=== PATIENT | female | born 1955 | race Caucasian/White ===

== ENCOUNTER → 2016-09-03 | Outpatient (CLI) | payer OTHER ==
[2016-09-03 10:14] LABS: BASOPHIL % 0.5 % (0-2); PLATELET COUNT 448 x10^3mcL (130-400); RED CELL DISTRIBUTION WIDTH 14.6 % (11.5-14.5)
[2016-09-03 10:20] LABS: ALBUMIN 3.6 g/dL (3.4-5.0); ALKALINE PHOSPHATASE 56 U/L (46-116); ALT/SGPT 26 U/L (14-59); AST/SGOT 12 U/L (15-37); BILIRUBIN TOTAL 0.2 mg/dL (0.20-1.00); CALCIUM 9.2 mg/dL (8.5-10.1); CARBON DIOXIDE 26.5 mmol/L (21-32); CHLORIDE SERUM 105 mmol/L (98-107); CHOLESTEROL 203 mg/dL (<200); CHOLESTEROL/HDL RATIO 4.1; CREATININE SERUM 0.6 mg/dL (0.6-1.0); GFR1 > 60 mL/min; GLUCOSE SERUM 126 mg/dL (74-106); HDL CHOLESTEROL 49 mg/dL (40-60); POTASSIUM SERUM 4.2 mmol/L (3.5-5.1); SODIUM SERUM 137 mmol/L (136-145); TOTAL PROTEIN, SERUM 7.4 g/dL (6.4-8.2); TRIGLYCERIDES 163 mg/dL (<150)
[2016-09-04 16:38] LABS: microalbumin:creatinine ratio < 3.8 (0.0-30.0)
== END | disposition home or self-care (01) ==
LOC: LB 09:10
PROVIDERS: Family Medicine
DX: E11.9 Type 2 diabetes mellitus without complications (principal)

== ENCOUNTER 2017-02-15 02:33 | Emergency (ER) | payer OTHER ==
[~2017-02-15] VITALS: Ht 160 cm; Wt 65.8 kg
[2017-02-15 02:34] VITALS: Ht 160 cm; Wt 65.8 kg
[2017-02-15 05:50] VITALS: BP 120/75
== END 2017-02-15 05:50 | disposition home or self-care (01) ==
LOC: ED 02:33
DX: J45.909 Unspecified asthma, uncomplicated (principal); J06.9 Acute upper respiratory infection, unspecified; E11.9 Type 2 diabetes mellitus without complications; I10 Essential (primary) hypertension; E78.00 Pure hypercholesterolemia, unspecified; Z88.5 Allergy status to narcotic agent
CPT/HCPCS: J7620

== ENCOUNTER → 2017-02-23 | Outpatient (CLI) | payer OTHER ==
[2017-02-23 09:52] LABS: ALBUMIN 3.7 g/dL (3.4-5.0); ALKALINE PHOSPHATASE 65 U/L (46-116); ALT/SGPT 37 U/L (14-59); AST/SGOT 14 U/L (15-37); BILIRUBIN TOTAL 0.38 mg/dL (0.20-1.00); CALCIUM 9.6 mg/dL (8.5-10.1); CARBON DIOXIDE 29.1 mmol/L (21-32); CHLORIDE SERUM 103 mmol/L (98-107); CHOLESTEROL 172 mg/dL (<200); CHOLESTEROL/HDL RATIO 4.4; CREATININE SERUM 0.6 mg/dL (0.6-1.0); GFR1 > 60 mL/min; GLUCOSE SERUM 143 mg/dL (74-106); HDL CHOLESTEROL 39 mg/dL (40-60); POTASSIUM SERUM 4.2 mmol/L (3.5-5.1); SODIUM SERUM 138 mmol/L (136-145); TOTAL PROTEIN, SERUM 7.6 g/dL (6.4-8.2)
[2017-02-23 09:53] LABS: TRIGLYCERIDES 242 mg/dL (<150)
[2017-02-23 10:01] LABS: BASOPHIL % 0.5 % (0-2); RED BLOOD CELLS 5.33 M/mm3 (4.10-5.10); RED CELL DISTRIBUTION WIDTH 14.1 % (11.5-14.5)
[2017-02-23 10:02] LABS: FREE T4 1.36 ng/dL (0.76-1.46); FREE THYROXINE INDEX 4.1 ug/dL (1.4-4.5); PLATELET COUNT 445 x10^3mcL (130-400); T4(THYROXINE) 11.8 ug/dL (4.7-13.3)
[2017-02-23 10:28] LABS: IRON 63 ug/dL (50-170); TOTAL IRON BINDING CAPACITY 333 ug/dL (250-450)
[2017-02-23 10:39] LABS: T3 TOTAL 1.22 ng/mL
== END | disposition home or self-care (01) ==
LOC: LB 09:06
PROVIDERS: Family Medicine
DX: Z00.00 Encounter for general adult medical examination without abnormal findings (principal)
CPT/HCPCS: 84439

== ENCOUNTER → 2017-03-10 | Outpatient (CLI) | payer OTHER | END | disposition home or self-care (01) | LOC: LB 08:19 | DX: E11.9 Type 2 diabetes mellitus without complications (principal); I10 Essential (primary) hypertension ==

== ENCOUNTER → 2017-08-05 | Outpatient (CLI) | payer OTHER ==
[2017-08-05 10:41] LABS: ALBUMIN 3.9 g/dL (3.4-5.0); ALKALINE PHOSPHATASE 54 U/L (46-116); ALT/SGPT 20 U/L (14-59); AST/SGOT 14 U/L (15-37); BILIRUBIN TOTAL 0.36 mg/dL (0.20-1.00); CALCIUM 9.9 mg/dL (8.5-10.1); CARBON DIOXIDE 27.9 mmol/L (21-32); CHLORIDE SERUM 104 mmol/L (98-107); CREATININE SERUM 0.6 mg/dL (0.6-1.0); GLUCOSE SERUM 133 mg/dL (74-106); HDL CHOLESTEROL 50 mg/dL (40-60); POTASSIUM SERUM 4.4 mmol/L (3.5-5.1); SODIUM SERUM 140 mmol/L (136-145); TOTAL PROTEIN, SERUM 7.7 g/dL (6.4-8.2)
[2017-08-05 10:52] LABS: FREE T4 1.03 ng/dL (0.76-1.46); FREE THYROXINE INDEX 2.9 ug/dL (1.4-4.5); T4(THYROXINE) 9.2 ug/dL (4.7-13.3)
[2017-08-05 12:30] LABS: T3 TOTAL 1.27 ng/mL
[2017-08-05 13:04] LABS: PLATELET COUNT 368 x10^3mcL (130-400)
[2017-08-05 14:13] LABS: CHOLESTEROL 143 mg/dL (<200); CHOLESTEROL/HDL RATIO 2.9; TRIGLYCERIDES 125 mg/dL (<150)
== END | disposition home or self-care (01) ==
LOC: LB 09:43
PROVIDERS: Family Medicine
DX: E11.9 Type 2 diabetes mellitus without complications (principal); I10 Essential (primary) hypertension
CPT/HCPCS: 84439

== ENCOUNTER 2017-08-14 11:02 | Inpatient (IN) | payer OTHER ==
[~2017-08-14] VITALS: Ht 152.4 cm; Wt 63.1 kg
[2017-08-14 11:11] VITALS: Ht 152.4 cm; Wt 63.1 kg
[2017-08-14 13:07] LABS: BASOPHIL % 0.3 % (0-2); PLATELET COUNT 396 x10^3mcL (130-400)
[2017-08-14 13:10] LABS: UA SPECIFIC GRAVITY <=1.005 (1.005-1.035); microscopic required? YES; urine erythrocyte NEGATIVE (NEGATIVE)
[2017-08-14 13:32] LABS: RED CELL DISTRIBUTION WIDTH 14.7 % (11.5-14.5)
[2017-08-14 13:40] LABS: CALCIUM 10.4 mg/dL (8.5-10.1); CARBON DIOXIDE 25.6 mmol/L (21-32); CHLORIDE SERUM 103 mmol/L (98-107); CREATININE SERUM 0.7 mg/dL (0.6-1.0); GFR1 > 60 mL/min; GLUCOSE SERUM 173 mg/dL (74-106); POTASSIUM SERUM 4.4 mmol/L (3.5-5.1); SODIUM SERUM 139 mmol/L (136-145)
[2017-08-14 13:51] LABS: ALBUMIN 3.9 g/dL (3.4-5.0); ALKALINE PHOSPHATASE 57 U/L (46-116); ALT/SGPT 29 U/L (14-59); AMYLASE 48 U/L (25-115); AST/SGOT 18 U/L (15-37); CHOLESTEROL 147 mg/dL (<200); HDL CHOLESTEROL 48 mg/dL (40-60); LIPASE 175 IU/L (73-393); MAGNESIUM 2.3 mg/dL (1.8-2.4); TOTAL PROTEIN, SERUM 7.9 g/dL (6.4-8.2)
[2017-08-14 14:33] LABS: AMPHETAMINE QUAL UR NONE DETECTED (See below)
[2017-08-14] MEDS ORDERED: METFORMIN HCL850 MG PO (16:50)
[2017-08-14] MEDS ORDERED: GLYBURIDE2.5 MG PO (16:56)
[2017-08-14] MEDS ORDERED: PROPRANOLOL HY120 MG PO (16:57)
[2017-08-14] MEDS ORDERED: LISINOPRIL40 MG PO (16:58)
[2017-08-14] MEDS ORDERED: SIMVASTATIN80 M1 PO (16:59)
[2017-08-14] MEDS ORDERED: GOOD SENSE ASPI81 M3 PO (17:00)
[2017-08-14] MEDS ORDERED: MOTION SICKNESS25 M4 PO (17:01)
[2017-08-14] MEDS ORDERED: LORAZEPAM0.5 MG PO (17:02)
[2017-08-14 17:39] VITALS: BP 119/65
[2017-08-14 21:04] VITALS: BP 146/60
[2017-08-15 05:59] VITALS: BP 142/86
[2017-08-15 06:13] LABS: BASOPHIL % 0.2 % (0-2); PLATELET COUNT 362 x10^3mcL (130-400)
[2017-08-15 06:35] LABS: CALCIUM 9.8 mg/dL (8.5-10.1); CARBON DIOXIDE 25.4 mmol/L (21-32); CHLORIDE SERUM 105 mmol/L (98-107); CHOLESTEROL 140 mg/dL (<200); CHOLESTEROL/HDL RATIO 3.1; CREATININE SERUM 0.6 mg/dL (0.6-1.0); GFR1 > 60 mL/min; GLUCOSE SERUM 133 mg/dL (74-106); HDL CHOLESTEROL 45 mg/dL (40-60); MAGNESIUM 2.1 mg/dL (1.8-2.4); PHOSPHOROUS 3.5 mg/dL (2.5-4.9); POTASSIUM SERUM 4.3 mmol/L (3.5-5.1); SODIUM SERUM 139 mmol/L (136-145); TRIGLYCERIDES 115 mg/dL (<150)
[2017-08-15 06:43] LABS: RED CELL DISTRIBUTION WIDTH 14.6 % (11.5-14.5)
[2017-08-15 13:42] VITALS: BP 135/48
[2017-08-15 16:22] VITALS: BP 104/40
[2017-08-15] MEDS ORDERED: LEVAQUIN750 MG PO (16:30)
[2017-08-15 16:49] VITALS: BP 104/40
== END 2017-08-15 19:30 | disposition home or self-care (01) | DRG 206 ==
LOC: ED 11:02 → DU 15:44
PROVIDERS: Emergency Medicine; Internal Medicine
DX: M94.0 Chondrocostal junction syndrome [Tietze] (principal); N39.0 Urinary tract infection, site not specified; R00.0 Tachycardia, unspecified; E11.65 Type 2 diabetes mellitus with hyperglycemia; E78.5 Hyperlipidemia, unspecified; I11.9 Hypertensive heart disease without heart failure; F41.9 Anxiety disorder, unspecified; E78.00 Pure hypercholesterolemia, unspecified; I45.10 Unspecified right bundle-branch block; Z79.82 Long term (current) use of aspirin; Z79.84 Long term (current) use of oral hypoglycemic drugs
CPT/HCPCS: 83880; 85378; A9500; G0480; J7030

== ENCOUNTER → 2017-11-16 | Outpatient (CLI) | payer OTHER ==
[~2017-11-16] MED LIST: GLYBURIDE2.5 MG PO; GOOD SENSE ASPI81 M3 PO; LEVAQUIN750 MG PO; LISINOPRIL40 MG PO; LORAZEPAM0.5 MG PO; METFORMIN HCL850 MG PO; MOTION SICKNESS25 M4 PO; PROPRANOLOL HY120 MG PO; SIMVASTATIN80 M1 PO
[2017-11-16 09:24] LABS: BASOPHIL % 0.4 % (0-2); PLATELET COUNT 398 x10^3mcL (130-400); RED CELL DISTRIBUTION WIDTH 13.3 % (11.5-14.5)
[2017-11-16 09:48] LABS: ALBUMIN 3.9 g/dL (3.4-5.0); ALKALINE PHOSPHATASE 57 U/L (46-116); ALT/SGPT 34 U/L (14-59); AST/SGOT 14 U/L (15-37); BILIRUBIN TOTAL 0.4 mg/dL (0.20-1.00); CARBON DIOXIDE 29.2 mmol/L (21-32); CHLORIDE SERUM 102 mmol/L (98-107); CHOLESTEROL 173 mg/dL (<200); CREATININE SERUM 0.7 mg/dL (0.6-1.0); FREE T4 1.11 ng/dL (0.76-1.46); GFR1 > 60 mL/min; GLUCOSE SERUM 131 mg/dL (74-106); HDL CHOLESTEROL 43 mg/dL (40-60); POTASSIUM SERUM 4.6 mmol/L (3.5-5.1); SODIUM SERUM 137 mmol/L (136-145); TRIGLYCERIDES 146 mg/dL (<150)
[2017-11-16 11:14] LABS: UA SPECIFIC GRAVITY 1.015 (1.005-1.035); microscopic required? YES; urine erythrocyte NEGATIVE (NEGATIVE)
== END | disposition home or self-care (01) ==
LOC: LB 09:04
DX: E11.9 Type 2 diabetes mellitus without complications (principal); E78.5 Hyperlipidemia, unspecified
CPT/HCPCS: 84439

== ENCOUNTER → 2017-11-20 | Outpatient (CLI) | payer OTHER | END | disposition home or self-care (01) | LOC: RD 11:11 → LB 11:11 | DX: R10.9 Unspecified abdominal pain (principal) ==

== ENCOUNTER 2017-12-06 07:56 | Day surgery (SDC) | payer OTHER ==
[~2017-12-06] VITALS: Ht 149.9 cm; Wt 60.8 kg
[2017-12-06 08:51] VITALS: BP 164/77
[2017-12-06 12:04] VITALS: BP 112/60
== END 2017-12-06 11:15 | disposition home or self-care (01) ==
LOC: GI 07:56 → OR 10:30 → GI 11:15
PROVIDERS: Internal Medicine Gastroenterology
PROC: 0DB68ZX Excision of Stomach, Via Natural or Artificial Opening Endoscopic, Diagnostic (ICD-10-PCS; principal; 2017-12-06 10:30)
DX: K21.9 Gastro-esophageal reflux disease without esophagitis (principal); K59.00 Constipation, unspecified; K64.9 Unspecified hemorrhoids; I10 Essential (primary) hypertension; E11.9 Type 2 diabetes mellitus without complications; E78.5 Hyperlipidemia, unspecified; Z68.27 Body mass index [BMI] 27.0-27.9, adult; Z80.0 Family history of malignant neoplasm of digestive organs
CPT/HCPCS: 43235; J1200; J1610; J2250; J2310; J3010; J3490

== ENCOUNTER → 2018-04-19 | Outpatient (CLI) | payer OTHER ==
[2018-04-19 09:43] LABS: BASOPHIL % 0.5 % (0-2); PLATELET COUNT 368 x10^3mcL (130-400); RED CELL DISTRIBUTION WIDTH 14.4 % (11.5-14.5); microscopic required? YES; urine erythrocyte NEGATIVE (NEGATIVE)
[2018-04-19 10:05] LABS: ALBUMIN 3.8 g/dL (3.4-5.0); ALKALINE PHOSPHATASE 52 U/L (46-116); ALT/SGPT 38 U/L (14-59); AST/SGOT 17 U/L (15-37); BILIRUBIN TOTAL 0.39 mg/dL (0.20-1.00); CALCIUM 9.6 mg/dL (8.5-10.1); CARBON DIOXIDE 30.7 mmol/L (21-32); CHLORIDE SERUM 105 mmol/L (98-107); CHOLESTEROL 145 mg/dL (<200); CHOLESTEROL/HDL RATIO 3.2; CREATININE SERUM 0.6 mg/dL (0.6-1.0); FREE T4 1.08 ng/dL (0.76-1.46); GFR1 > 60 mL/min; GLUCOSE SERUM 147 mg/dL (74-106); HDL CHOLESTEROL 45 mg/dL (40-60); POTASSIUM SERUM 4.7 mmol/L (3.5-5.1); SODIUM SERUM 143 mmol/L (136-145); TOTAL PROTEIN, SERUM 7.9 g/dL (6.4-8.2); TRIGLYCERIDES 113 mg/dL (<150)
== END | disposition home or self-care (01) ==
LOC: LB 08:43
DX: E11.9 Type 2 diabetes mellitus without complications (principal); E78.5 Hyperlipidemia, unspecified
CPT/HCPCS: 84439

== ENCOUNTER 2018-05-03 05:41 | Emergency (ER) | payer OTHER ==
[~2018-05-03] VITALS: Ht 152.4 cm; Wt 64.4 kg
[2018-05-03 05:49] VITALS: BP 147/78; Ht 152.4 cm; Wt 64.4 kg
== END 2018-05-03 08:15 | disposition home or self-care (01) ==
LOC: ED 05:41
DX: J02.9 Acute pharyngitis, unspecified (principal); I10 Essential (primary) hypertension; E11.9 Type 2 diabetes mellitus without complications; E78.00 Pure hypercholesterolemia, unspecified; Z88.5 Allergy status to narcotic agent

== ENCOUNTER → 2018-07-04 | Outpatient (CLI) | payer OTHER | END | disposition home or self-care (01) | LOC: US 08:37 | PROC: BU4CZZZ Ultrasonography of Uterus and Ovaries (ICD-10-PCS; principal; 2018-07-04) | DX: N95.0 Postmenopausal bleeding (principal) ==

== ENCOUNTER → 2018-08-04 | Outpatient (CLI) | payer OTHER ==
[2018-08-04 09:57] LABS: ALBUMIN 3.8 g/dL (3.4-5.0); ALKALINE PHOSPHATASE 51 U/L (46-116); ALT/SGPT 38 U/L (14-59); AST/SGOT 14 U/L (15-37); BILIRUBIN TOTAL 0.3 mg/dL (0.20-1.00); CALCIUM 9.8 mg/dL (8.5-10.1); CARBON DIOXIDE 29.3 mmol/L (21-32); CHLORIDE SERUM 103 mmol/L (98-107); CHOLESTEROL 182 mg/dL (<200); CHOLESTEROL/HDL RATIO 4.3; CREATININE SERUM 0.6 mg/dL (0.6-1.0); GFR1 > 60 mL/min; GLUCOSE SERUM 132 mg/dL (74-106); HDL CHOLESTEROL 42 mg/dL (40-60); POTASSIUM SERUM 4.3 mmol/L (3.5-5.1); SODIUM SERUM 140 mmol/L (136-145); TOTAL PROTEIN, SERUM 7.6 g/dL (6.4-8.2); TRIGLYCERIDES 203 mg/dL (<150)
[2018-08-04 10:39] LABS: BASOPHIL % 0.6 % (0-2); PLATELET COUNT 371 x10^3mcL (130-400); RED CELL DISTRIBUTION WIDTH 14.2 % (11.5-14.5)
[2018-08-05 09:05] LABS: microalbumin:creatinine ratio 7.6 (0.0-30.0)
== END | disposition home or self-care (01) ==
LOC: LB 09:10
DX: E11.9 Type 2 diabetes mellitus without complications (principal)

== ENCOUNTER 2018-08-19 22:33 | Emergency (ER) | payer OTHER ==
[2018-08-20 01:06] LABS: BASOPHIL % 0.3 % (0-2); PLATELET COUNT 374 x10^3mcL (130-400); RED CELL DISTRIBUTION WIDTH 14.4 % (11.5-14.5)
[2018-08-20 01:13] LABS: CALCIUM 10.2 mg/dL (8.5-10.1); CARBON DIOXIDE 25.1 mmol/L (21-32); CHLORIDE SERUM 102 mmol/L (98-107); CREATININE SERUM 0.7 mg/dL (0.6-1.0); GFR1 > 60 mL/min; GLUCOSE SERUM 181 mg/dL (74-106); POTASSIUM SERUM 4.2 mmol/L (3.5-5.1); SODIUM SERUM 137 mmol/L (136-145)
[2018-08-20 01:17] LABS: ALBUMIN 3.7 g/dL (3.4-5.0); ALKALINE PHOSPHATASE 55 U/L (46-116); ALT/SGPT 39 U/L (14-59); AST/SGOT 13 U/L (15-37); CHOLESTEROL 166 mg/dL (<200); TOTAL PROTEIN, SERUM 7.5 g/dL (6.4-8.2)
[2018-08-20 01:25] LABS: T3 TOTAL 1.1 ng/mL
[2018-08-20 01:27] LABS: FREE T4 0.95 ng/dL (0.76-1.46); FREE THYROXINE INDEX 2.8 ug/dL (1.4-4.5)
[2018-08-20 02:12] VITALS: BP 116/52
== END 2018-08-20 02:12 | disposition home or self-care (01) ==
LOC: ED 22:33
PROVIDERS: Specialist
DX: R00.2 Palpitations (principal); I10 Essential (primary) hypertension; E11.9 Type 2 diabetes mellitus without complications; E78.00 Pure hypercholesterolemia, unspecified; Z88.5 Allergy status to narcotic agent; Z98.890 Other specified postprocedural states
CPT/HCPCS: 36415; 82962; 84439; G0480; Q0092

== ENCOUNTER 2018-09-26 20:07 | Emergency (ER) | payer OTHER ==
[~2018-09-26] VITALS: Ht 152.4 cm; Wt 63.0 kg
[2018-09-26 20:13] VITALS: Ht 152.4 cm; Wt 63.0 kg
[2018-09-26 22:05] LABS: CARBON DIOXIDE 27.6 mmol/L (21-32); CHLORIDE SERUM 105 mmol/L (98-107); CREATININE SERUM 0.8 mg/dL (0.6-1.0); GFR1 > 60 mL/min; GLUCOSE SERUM 206 mg/dL (74-106); POTASSIUM SERUM 4.1 mmol/L (3.5-5.1); SODIUM SERUM 140 mmol/L (136-145)
[2018-09-26 22:30] VITALS: BP 159/70
== END 2018-09-26 22:30 | disposition home or self-care (01) ==
LOC: ED 20:07
PROVIDERS: Emergency Medicine
DX: R00.2 Palpitations (principal); I16.0 Hypertensive urgency; I10 Essential (primary) hypertension; E11.9 Type 2 diabetes mellitus without complications; E78.00 Pure hypercholesterolemia, unspecified; Z98.890 Other specified postprocedural states; Z88.5 Allergy status to narcotic agent
CPT/HCPCS: 36415

== ENCOUNTER → 2018-10-18 | Outpatient (CLI) | payer OTHER ==
[2018-10-18 08:54] LABS: BASOPHIL % 0.2 % (0-2); PLATELET COUNT 357 x10^3mcL (130-400)
[2018-10-18 08:55] LABS: RED CELL DISTRIBUTION WIDTH 14.6 % (11.5-14.5)
[2018-10-18 09:05] LABS: ALBUMIN 3.8 g/dL (3.4-5.0); ALKALINE PHOSPHATASE 66 U/L (46-116); ALT/SGPT 30 U/L (14-59); AST/SGOT 15 U/L (15-37); BILIRUBIN TOTAL 0.3 mg/dL (0.20-1.00); CALCIUM 9.3 mg/dL (8.5-10.1); CARBON DIOXIDE 26.6 mmol/L (21-32); CHLORIDE SERUM 105 mmol/L (98-107); CREATININE SERUM 0.6 mg/dL (0.6-1.0); GFR1 > 60 mL/min; GLUCOSE SERUM 130 mg/dL (74-106); HDL CHOLESTEROL 43 mg/dL (40-60); POTASSIUM SERUM 4.1 mmol/L (3.5-5.1); SODIUM SERUM 139 mmol/L (136-145); TOTAL PROTEIN, SERUM 7.6 g/dL (6.4-8.2); TRIGLYCERIDES 96 mg/dL (<150)
[2018-10-18 09:13] LABS: CHOLESTEROL 115 mg/dL (<200); CHOLESTEROL/HDL RATIO 2.7
[2018-10-19 08:05] LABS: microalbumin:creatinine ratio 5.7 (0.0-30.0)
== END | disposition home or self-care (01) ==
LOC: LB 08:29
DX: E11.8 Type 2 diabetes mellitus with unspecified complications (principal); E78.5 Hyperlipidemia, unspecified; E78.2 Mixed hyperlipidemia; E55.9 Vitamin D deficiency, unspecified

== ENCOUNTER → 2019-01-02 | Outpatient (CLI) | payer OTHER | END | disposition home or self-care (01) | LOC: US 09:10 | PROC: BW4GZZZ Ultrasonography of Pelvic Region (ICD-10-PCS; principal; 2019-01-02) | DX: N95.0 Postmenopausal bleeding (principal) ==

== ENCOUNTER → 2019-01-10 | Outpatient (CLI) | payer OTHER ==
[2019-01-10 08:55] LABS: ALBUMIN 3.9 g/dL (3.4-5.0); ALKALINE PHOSPHATASE 72 U/L (46-116); ALT/SGPT 28 U/L (14-59); AST/SGOT 10 U/L (15-37); BILIRUBIN TOTAL 0.2 mg/dL (0.20-1.00); CALCIUM 9.6 mg/dL (8.5-10.1); CARBON DIOXIDE 30.8 mmol/L (21-32); CHLORIDE SERUM 102 mmol/L (98-107); CHOLESTEROL 172 mg/dL (<200); CHOLESTEROL/HDL RATIO 3.6; CREATININE SERUM 0.6 mg/dL (0.6-1.0); GFR1 > 60 mL/min; GLUCOSE SERUM 135 mg/dL (74-106); HDL CHOLESTEROL 48 mg/dL (40-60); POTASSIUM SERUM 4.3 mmol/L (3.5-5.1); SODIUM SERUM 140 mmol/L (136-145); TOTAL PROTEIN, SERUM 7.9 g/dL (6.4-8.2); TRIGLYCERIDES 97 mg/dL (<150)
[2019-01-10 09:03] LABS: PLATELET COUNT 403 x10^3mcL (130-400); RED CELL DISTRIBUTION WIDTH 15.1 % (11.5-14.5)
== END | disposition home or self-care (01) ==
LOC: LB 08:12
DX: E11.8 Type 2 diabetes mellitus with unspecified complications (principal)

== ENCOUNTER → 2019-03-02 | Outpatient (CLI) | payer OTHER | END | disposition home or self-care (01) | LOC: US 09:28 | PROC: B345ZZZ Ultrasonography of Bilateral Common Carotid Arteries (ICD-10-PCS; principal; 2019-03-02) | PROC: B348ZZZ Ultrasonography of Bilateral Internal Carotid Arteries (ICD-10-PCS; 2019-03-02) | DX: I65.22 Occlusion and stenosis of left carotid artery (principal); E78.5 Hyperlipidemia, unspecified ==

== ENCOUNTER 2019-04-06 22:11 | Emergency (ER) | payer OTHER ==
[~2019-04-06] VITALS: Ht 154.9 cm; Wt 62.1 kg
[2019-04-06 22:17] VITALS: Ht 154.9 cm; Wt 62.1 kg
[2019-04-06 23:13] LABS: BASOPHIL % 0.5 % (0-2)
[2019-04-06 23:16] LABS: PLATELET COUNT 421 x10^3mcL (130-400); RED CELL DISTRIBUTION WIDTH 14.7 % (11.5-14.5)
[2019-04-07 00:07] LABS: CALCIUM 10.1 mg/dL (8.5-10.1); CHLORIDE SERUM 104 mmol/L (98-107); CREATININE SERUM 0.7 mg/dL (0.6-1.0); GFR1 > 60 mL/min; GLUCOSE SERUM 154 mg/dL (74-106); POTASSIUM SERUM 4.1 mmol/L (3.5-5.1); SODIUM SERUM 140 mmol/L (136-145)
[2019-04-07 00:11] LABS: ALBUMIN 3.7 g/dL (3.4-5.0); ALKALINE PHOSPHATASE 69 U/L (46-116); ALT/SGPT 25 U/L (14-59); AST/SGOT 8 U/L (15-37); BILIRUBIN TOTAL 0.23 mg/dL (0.20-1.00); TOTAL PROTEIN, SERUM 7.4 g/dL (6.4-8.2)
[2019-04-07 01:34] VITALS: BP 145/67
== END 2019-04-07 01:34 | disposition home or self-care (01) ==
LOC: ED 22:11
PROVIDERS: Emergency Medicine
DX: H93.13 Tinnitus, bilateral (principal); I10 Essential (primary) hypertension; R51 Headache; R11.0 Nausea; M54.2 Cervicalgia; E78.00 Pure hypercholesterolemia, unspecified; Z98.890 Other specified postprocedural states
CPT/HCPCS: 36415

== ENCOUNTER → 2019-05-06 | Outpatient (CLI) | payer OTHER ==
[2019-05-06 17:00] LABS: ALBUMIN 3.8 g/dL (3.4-5.0); ALKALINE PHOSPHATASE 63 U/L (46-116); ALT/SGPT 34 U/L (14-59); AST/SGOT 12 U/L (15-37); BILIRUBIN TOTAL 0.12 mg/dL (0.20-1.00); CARBON DIOXIDE 32.1 mmol/L (21-32); CHLORIDE SERUM 104 mmol/L (98-107); CHOLESTEROL 154 mg/dL (<200); CHOLESTEROL/HDL RATIO 3.4; CREATININE SERUM 0.7 mg/dL (0.6-1.0); GFR1 > 60 mL/min; GLUCOSE SERUM 152 mg/dL (74-106); HDL CHOLESTEROL 45 mg/dL (40-60); POTASSIUM SERUM 4.1 mmol/L (3.5-5.1); SODIUM SERUM 139 mmol/L (136-145); TOTAL PROTEIN, SERUM 7.7 g/dL (6.4-8.2); TRIGLYCERIDES 152 mg/dL (<150)
[2019-05-06 18:14] LABS: T3 TOTAL 1.32 ng/mL
[2019-05-06 19:25] LABS: FREE T4 0.96 ng/dL (0.76-1.46); FREE THYROXINE INDEX 2.1 ug/dL (1.4-4.5); T4(THYROXINE) 7.2 ug/dL (4.7-13.3)
== END | disposition home or self-care (01) ==
LOC: LB 16:27
DX: E04.9 Nontoxic goiter, unspecified (principal); E11.00 Type 2 diabetes mellitus with hyperosmolarity without nonketotic hyperglycemic-hyperosmolar coma (NKHHC); E78.5 Hyperlipidemia, unspecified
CPT/HCPCS: 84439

== ENCOUNTER → 2019-05-07 | Outpatient (CLI) | payer OTHER | END | disposition home or self-care (01) | LOC: US 08:27 | PROC: BG44ZZZ Ultrasonography of Thyroid Gland (ICD-10-PCS; principal; 2019-05-07) | PROC: BW28ZZZ Computerized Tomography (CT Scan) of Head (ICD-10-PCS; 2019-05-07) | DX: E04.1 Nontoxic single thyroid nodule (principal) ==

== ENCOUNTER → 2019-06-17 | Outpatient (CLI) | payer OTHER | END | disposition home or self-care (01) | LOC: LB 08:19 | DX: R53.83 Other fatigue (principal); E55.9 Vitamin D deficiency, unspecified ==

== ENCOUNTER → 2019-07-15 | Day surgery (SDC) | payer OTHER ==
[2019-07-13 16:26] LABS: BASOPHIL % 0.5 % (0-2); RED CELL DISTRIBUTION WIDTH 14.1 % (11.5-14.5)
[2019-07-13 16:27] LABS: PLATELET COUNT 433 x10^3mcL (130-400)
[~2019-07-15] VITALS: Ht 152.4 cm; Wt 64.4 kg
[2019-07-15] VITALS (7 sets, daily range): BP systolic 131–148; BP diastolic 69–77
== END | disposition home or self-care (01) ==
LOC: US 07:19
PROVIDERS: ATTEND Surgery
DX: E04.1 Nontoxic single thyroid nodule (principal); I10 Essential (primary) hypertension; E11.9 Type 2 diabetes mellitus without complications; E78.00 Pure hypercholesterolemia, unspecified; Z79.899 Other long term (current) drug therapy; Z79.84 Long term (current) use of oral hypoglycemic drugs; Z98.890 Other specified postprocedural states; Z90.89 Acquired absence of other organs
CPT/HCPCS: 60100; J2001

== ENCOUNTER → 2019-09-25 | Outpatient (CLI) | payer OTHER | END | disposition home or self-care (01) | LOC: MA 09:30 | PROC: BH02ZZZ Plain Radiography of Bilateral Breasts (ICD-10-PCS; principal; 2019-09-25) | DX: Z12.31 Encounter for screening mammogram for malignant neoplasm of breast (principal) | CPT/HCPCS: 77067 ==